=== PATIENT | female | born 1995 | race Caucasian/White ===

== ENCOUNTER 2022-09-09 16:11 | Inpatient (IN) | payer BC, SELFPAY ==
[2022-09-09] VITALS (22 sets, daily range): BP systolic 107–152; BP diastolic 69–108; PULSE 58–158; RESP 11–26; TEMP 36.6–36.8; O2SAT 96–100; BMI 22.6
--- NOTE | 2022-09-09 16:16 | ED_ITS ---
HPI - GI Bleed General: Chief complaint: GI Bleed Stated complaint: BLOOD IN VOMIT Time Seen by Provider: 09/09/22 16:16 History of Present Illness: Ms. Fonseca is a 27-year-old lady presenting to the emergency department due to hematemesis. She reports having a child with C- section and tubal ligation on August 07 in [place]. Over the past few days she has had diarrhea and recurrent episodes of vomiting. Emesis became bloody today. She describes it as bright red blood and EMS noted the blood in stool to be dark tarry. Initially patient noted to be tachycardic and hypo tensive. Intensity symptoms is moderate to severe. Describes aching sharp pain. Denies history of alcohol abuse or known liver disease. Patient is not on anticoagulation. No other specific changes in health, exacerbating, or alleviating factors identified. Onset (ago): day(s) Pain Consistency: constant Severity: severe Associated symptoms: Reports abdominal pain, malaise, nausea, vomiting and weakness Review of Systems General: Reports: 10 or more systems reviewed and unremarkable except in HPI and below Const: Reports: malaise GI: Reports: abdominal pain, nausea and vomiting [facility] PFSH: Medical History Gastric ulcer NSAID-induced duodenal ulcer Surgical History History of Family History Denies family history of Clotting disorder Bleeding disorder Physical Exam Const: COMMON NORMALS: alert GENERAL APPEARANCE: cooperative, well developed and ill appearing HENMT: COMMON NORMALS: normocephalic and atraumatic HEAD & SCALP: normocephalic and atraumatic Eye: COMMON NORMALS: conjunctivae normal CONJUNCTIVA: Yes conjunctivae normal SCLERA: sclerae normal Neck/C-Spine: COMMON NORMALS: supple GENERAL: Yes trachea midline Resp: COMMON NORMALS: clear to auscultation bilaterally EFFORT & INSPEC TION: Yes able to speak in complete sentences AUSCULTATION: clear to auscultation bilaterally Cardio: COMMON NORMALS: regular rate and regular rhythm RATE: regular rate RHYTHM: regular rhythm GI: COMMON NORMALS: Soft to palpation PALPATION: Yes Soft to palpation, Yes Tenderness to palpation present (GI), Yes Guarding due to palpation present (GI) and No Rigid due to palpation OTHER: incision appears well-healing Extremity: GENERAL: Yes normal exam except as noted and No edema Neuro: COMMON NORMALS: moves all extremities SENSORIUM/ORIENTATION: Yes alert and No Orientation impaired Psych: COMMON NORMALS: mental status grossly normal and Normal thought process present THOUGHT PROCESS: Normal thought process present Skin: NARRATIVE SKIN EXAM: pallor Course Vital Signs: Vital signs: Vital Signs Temperature 97.8 F 09/10/22 04:00 Pulse Rate 112 H 09/10/22 16:00 Respiratory Rate 18 09/10/22 16:00 Blood Pressure 128/76 09/10/22 16:00 Pulse Oximetry 100 09/10/22 16:00 Oxygen Delivery Me thod 09/10/22 04:00 MDM - GI Bleed Medical Decision Making 27-year-old lady presenting due to hematemesis. Exam as above without active hematemesis on exam. Ill and pale appearing, blood pressure is improved from EMS report Labs notable for no leukocytosis, microcytic anemia of hemoglobin 5.5, normal platelet count and coags. Metabolic panel with mild metabolic stress, mild transaminitis of uncertain significance. Obtain records from patient's visit at [facility] labs drawn on 08/19/2022 and hemoglobin at that time was 9.4 with low iron. Patient consented for blood transfusion and transfusion ordered. Additionally patient given analgesia, antiemetic, pantoprazole. CT with contrast demonstrates no acute chest pathology, there is extensive material likely blood in the stomach without active evidence of extravasation. I discussed this with general surgery on-call for GI. Given the patient has not had recurrence of hematemesis during ED stay it is reasonable to keep her at our facility. He recommended tranexamic acid which was ordered. The results of ED evaluation were discussed with the patient including plan for admission due to requirement for level of care not available if discharged to prevent significant worsening/deterioration. Patient agreeable with plan. Discussed with hospitalist service who was agreeable to admit patient. Medical Records I reviewed the patient's medical records. Lab Data I reviewed the patient's lab results. 09/10/22 14:15 09/10/22 02:41 Radiology Impressions Chest/Abdomen/Pelvis CT 09/09/22 17:38 IMPRESSION: 1. No CT evidence of acute intrathoracic pathology. 2. Additional findings, as above. IMPRESSION: 1. Lobular dependent soft tissue attenuation in the stomach, possibly ingested material or blood products. No definite active extravasation of contrast. 2. Additional findings, as above. Laboratory Results WBC 7.3 10^3/uL (4.0-10.0) 09/09/22 17:13 RBC 2.48 10^6/uL (4.1-5.3) L 09/09/22 17:13 Hgb 5.5 g/dL (11.5-15.3) L* 09/09/22 17:13 Hct 19.8 % (37.0-47.0) L* 09/09/22 17:13 MCV 79.8 fl (81-99) L 09/09/22 17:13 MCH 22.2 pg (28.0-34.0) L 09/09/22 17:13 MCHC 27.8 g/dL (30.0-36.0) L 09/09/22 17:13 RDW 22.5 % (12.1-15.1) H 09/09/22 17:13 Plt Count 249 10^3/cmm (130-400) 09/09/22 17:13 MPV 8.9 fL (7.4-10.4) 09/09/22 17:13 Neut % (Auto) 85.1 % 09/09/22 17:13 Lymph % (Auto) 11.1 % 09/09/22 17:13 Frederick % (Auto) 3.0 % 09/09/22 17:13 Eos % (Auto) 0.0 % 09/09/22 17:13 Baso % (Auto) 0.4 % 09/09/22 17:13 Neut # (Auto) 6.21 10^3/uL (1.8-7.7) 09/09/22 17:13 Lymph # (Auto) 0.8 10^3/uL (0.8-4.8) 09/09/22 17:13 Frederick # (Auto) 0.2 10^3/uL (0.2-0.9) 09/09/22 17:13 Eos # (Auto) 0.0 10^3/uL (0.0-0.8) 09/09/22 17:13 Baso # (Auto) 0.0 10^3/uL (0.0-0.1) 09/09/22 17:13 Nucleated RBC % (auto) 0 % 09/09/22 17:13 Nucleated RBCs # 0.0 /100WBC 09/09/22 17:13 Haptoglobin 83.0 mg/L (30-200) 09/09/22 17:15 PT 14.10 SECONDS (12.1-14.9) 09/09/22 17:13 INR 1.05 (0.8-1.2) 09/09/22 17:13 APTT 32.2 SECONDS (23.9-36.7) 09/09/22 17:13 Sodium 138 mmol/L (136-145) 09/09/22 17:13 Potassium 3.5 mmol/L (3.5-5.1) 09/09/22 17:13 Chloride 106 mmol/L (98-107) 09/09/22 17:13 Carbon Dioxide 18 mmol/L (22-29) L 09/09/22 17:13 Anion Gap 17.5 (5-19) 09/09/22 17:13 BUN 12 mg/dL (6-20) 09/09/22 17:13 Creatinine 0.6 mg/dL (0.5-0.9) 09/09/22 17:13 GFR Calculation 118.2 mL/min (90-130) 09/09/22 17:13 Glucose 86 mg/dL (65-115) 09/09/22 17:13 Calculated Osmolality 285 mOsm/kg (285-295) 09/09/22 17:13 Lactic Acid 0.7 mmol/L (0.5-2.2) 09/09/22 17:13 Calcium 8.1 mg/dL (8.5-10.5) L 09/09/22 17:13 Total Bilirubin 0.2 mg/dL (0.15-1.2) 09/09/22 17:13 AST 49 U/L (0-32) H 09/09/22 17:13 ALT 49 U/L (0-33) H 09/09/22 17:13 Alkaline Phosphatase 80 U/L (35-105) 09/09/22 17:13 Lactate Dehydrogenase 159 U/L (135-214) 09/09/22 17:15 Total Protein 5.5 g/dL (6.6-8.7) L 09/09/22 17:13 Albumin 3.2 g/dL (3.5-5.2) L 09/09/22 17:13 Globulin 2.3 g/dL (1.3-4.6) 09/09/22 17:13 Blood Type AB Positive 09/09/22 17:13 Rho(D) Type Positive 09/09/22 17:13 Antibody Screen Negative 09/09/22 17:13 Crossmatch See Detail 09/09/22 17:13 Critical Care Time Critical Care Time: Critical Care Time: Yes Total Critical Care Time: 35 Attestation: Due to a high probability of clinically significant, possibly life threatening deterioration, the patient required my highest level of attention and preparedness to intervene emergently and I personally spent this critical care time directly and personally managing the patient. This critical care time included obtaining a history; examining the patient; pulse oximetry; ordering and review of laboratory and imaging studies; arranging urgent treatment with development of a management plan; evaluation of patient's response to treatment; frequent reassessment; and, discussions with other providers as applicable. It was exclusive of separately billable procedures. Primary system involved is vascular Discharge Plan Discharge Patient Disposition: Admitted As Inpatient Admit Provider: Cristina Hernandez Clinical Impression: Acute upper gastrointestinal bleeding, Acute on chronic blood loss anemia Condition: Stable Coding Level of Care Code ED Waste [employer] Pumper for Chg Fwd Exam Comprehensive
[2022-09-09] MEDS: ondansetron 2 mg/ML SDV 2 mL 4 MG IVP ×2 (16:51→21:36)
[2022-09-09] MEDS: morphine 4 mg/mL SDV 1 mL IVP ×2 (16:51→19:06)
[2022-09-09] MEDS: sodium chloride 0.9% 1,000 ML 999 ML IV (16:51)
[2022-09-09 17:34] LABS: Basophils % 0.4 %; Lymphocytes # 0.8 10^3/uL (0.8-4.8); Lymphocytes % 11.1 %; Mean Corpuscular HGB Conc 27.8 g/dL (30.0-36.0); Mean Corpuscular Hemoglobin 22.2 pg (28.0-34.0); Mean Corpuscular Volume 79.8 fl (81-99); Mean Platelet Volume 8.9 fL (7.4-10.4); Monocytes # 0.2 10^3/uL (0.2-0.9); Neutrophils # 6.21 10^3/uL (1.8-7.7); Neutrophils % 85.1 %; Nucleated Red Blood Cells % 0 %; Platelet Count 249 10^3/cmm (130-400); Red Blood Count 2.48 10^6/uL (4.1-5.3); Red Cell Distribution Width 22.5 % (12.1-15.1); White Blood Count 7.3 10^3/uL (4.0-10.0)
[2022-09-09 17:37] LABS: Hematocrit 19.8 % (37.0-47.0); Hemoglobin 5.5 g/dL (11.5-15.3)
--- NOTE | 2022-09-09 17:38 | CTR_ITS ---
PROCEDURE INFORMATION: Exam: CT Chest With Contrast; Diagnostic Exam date and time: 09/09/2022 6:38 PM Age: 27 years old Clinical indication: Vomiting and other: Vomiting blood; Other: Vomiting blood today; Additional info: Gi bleed TECHNIQUE: Imaging protocol: Diagnostic computed tomography of the chest with contrast. Axial, coronal and sagittal reformatted images were created and reviewed. Radiation optimization: All CT scans at this facility use at least one of these dose optimization techniques: automated exposure control; mA and/or kV adjustment per patient size (includes targeted exams where dose is matched to clinical indication); or iterative reconstruction. Contrast material: OMNIPAQUE 350; Contrast volume: 95 ml; Contrast route: INTRAVENOUS (IV); Other protocol: This patient has received 0 known CTs and 0 known cardiac nuclear medicine studies in the 12 months prior to the current study. COMPARISON: No relevant prior studies available. RADIATION DOSE METRICS: Total DLP (mGy-cm): 560.83 FINDINGS: Lungs: Left upper lobe calcified granulomata. No consolidation. Pleural spaces: Unremarkable. No pneumothorax. No pleural effusion. Heart: Unremarkable. No cardiomegaly. No pericardial effusion. Lymph nodes: No pathologically enlarged lymph nodes. Vasculature: Unremarkable. No aortic aneurysm. Bones/joints: No acute osseous abnormality. Soft tissues: Unremarkable. PROCEDURE INFORMATION: Exam: CT Abdomen And Pelvis With Contrast Exam date and time: 09/09/2022 6:38 PM Age: 27 years old Clinical indication: Vomiting and other: Vomiting blood; Other: Vomiting blood today; Additional info: Gi bleed TECHNIQUE: Imaging protocol: Computed tomography of the abdomen and pelvis with contrast. Axial, coronal and sagittal reformatted images were created and reviewed. Radiation optimization: All CT scans at this facility use at least one of these dose optimization techniques: automated exposure control; mA and/or kV adjustment per patient size (includes targeted exams where dose is matched to clinical indication); or iterative reconstruction. Contrast material: OMNIPAQUE 350; Contrast volume: 95 ml; Contrast route: INTRAVENOUS (IV); Other protocol: This patient has received 0 known CTs and 0 known cardiac nuclear medicine studies in the 12 months prior to the current study. COMPARISON: No relevant prior studies available. RADIATION DOSE METRICS: Total DLP (mGy-cm): 560.83 FINDINGS: Liver: Unremarkable. Gallbladder and bile ducts: Mild gallbladder distention without radiodense gallstones. Pancreas: Unremarkable. Spleen: Unremarkable. Adrenal glands: Normal. No mass. Kidneys and ureters: No mass. No radiodense calculi. No hydronephrosis. Stomach and bowel: Lobular dependent soft tissue attenuation in the stomach, possibly ingested material or blood products. No definite bowel wall thickening. No obstruction. No pneumatosis. Appendix: Normal. Intraperitoneal space: No free fluid. No organized fluid collection. No free air. Vasculature: Unremarkable. No aneurysm. Lymph nodes: No pathologically enlarged lymph nodes. Urinary bladder: Unremarkable as visualized. Reproductive: Probable right ovarian follicles. uterus. Bones/joints: No acute osseous abnormality. Soft tissues: Postoperative changes in the subcutaneous tissues of the anterior pelvic wall. CT/CT chest abd pel w con* IMPRESSION: 1. No CT evidence of acute intrathoracic pathology. 2. Additional findings, as above. IMPRESSION: 1. Lobular dependent soft tissue attenuation in the stomach, possibly ingested material or blood products. No definite active extravasation of contrast. 2. Additional findings, as above.
[2022-09-09 17:50] LABS: INR 1.05 (0.8-1.2)
[2022-09-09 17:51] LABS: Partial Thromboplastin Time 32.2 SECONDS (23.9-36.7)
[2022-09-09 17:55] LABS: Alanine Aminotransferase 49 U/L (0-33); Albumin Level 3.2 g/dL (3.5-5.2); Alkaline Phosphatase 80 U/L (35-105); Anion Gap 17.5 (5-19); Aspartate Amino Transferase 49 U/L (0-32); Blood Urea Nitrogen 12 mg/dL (6-20); Calcium 8.1 mg/dL (8.5-10.5); Carbon Dioxide 18 mmol/L (22-29); Chloride 106 mmol/L (98-107); Globulin 2.3 g/dL (1.3-4.6); Glomerular Filtration Rate 118.2 mL/min (90-130); Glucose 86 mg/dL (65-115); Osmolality Calculated 285 mOsm/kg (285-295); Potassium 3.5 mmol/L (3.5-5.1); Sodium 138 mmol/L (136-145); Total Bilirubin 0.2 mg/dL (0.15-1.2); Total Protein 5.5 g/dL (6.6-8.7)
[2022-09-09 17:58] LABS: Lactic Sepsis W/Reflex 0.7 mmol/L (0.5-2.2)
[2022-09-09] MEDS: pantoprazole 40 mg SDV 80 MG IVP (18:53)
--- NOTE | 2022-09-09 21:52 | PM.HP ---
Providers/Chief Complaint Admitting Physician: Cristina Hernandez MD Primary Care Provider: Joanne Miranda APRN Chief Complaint: BLOOD IN VOMIT History of Present Illness Flor Fonseca is a 27 year old female who is 1 month after having delivered a baby on August 07, 2022 via at [place]. She presented to the emergency room today with chief complaints of hematemesis. Patient states that she has been nauseous and vomiting several times a day through her and period. Today during one of her vomiting episodes she had bright red blood come up with her vomitus and presented to the emergency room. Here she was noted to be tachycardic, hemoglobin returned at 5.5. She does not know her hemoglobin at the time of delivery. Reports that she did not have any known bleeding complications, did not require any blood transfusion. After having the episode of hematemesis she also had 1 episode of melena with dark black tarry stools. Denies any past history of GI bleeding. Denies any history of known clotting disorders. This was her third and overall uneventful except for hyperemesis. She did not have any known issues with helpp syndrome, eclampsia, cholestasis etc. She has had 2 other episodes of vomiting since being admitted to the ICU with altered blood. She is running her first unit of blood transfusion right now. Since her she has been taking ibuprofen, however reports she only takes 1 tablet every other day. Mostly has been relying on Tylenol for pain control. No history of recent binge alcohol drinking but has consumed alcohol intermittently over the past month. Most recent consumption was 3 days ago. She is not currently breast-feeding. She continues to have vaginal bleeding since her , she thinks this is also increased over the past week or so similar to her period. No bleeding at any other site currently. No history of She does repor recreational drug use.t abdominal pain today located in the epigastric region radiating into her back. CT of the chest abdomen and pelvis was performed today which showed possible blood products in the stomach. No liver or gallbladder abnormalities. No evidence of pancreatitis. Review of Systems General: Reports: 10 or more systems reviewed and unremarkable except in HPI and below Const: Denies: fever(s), chills or body aches Eyes: Denies: change in vision, blurry vision or photophobia ENMT: Reports: hoarseness; Denies: throat pain, enlarged tonsils, odynophagia or nasal congestion Card: Denies: chest pain, palpitations, irregular heart rhythm, edema, swelling of feet/ankles, lightheadedness, pre-syncope, dyspnea on exertion or orthopnea Resp: Denies: dyspnea, productive cough, non-productive cough, wheezing, stridor, pain on inspiration, change in phlegm color, hemoptysis or chest congestion GI: Denies: abdominal pain, nausea, vomiting, hematemesis, coffee ground emesis, dysphagia, heartburn, diarrhea, constipation, GI cramping, change in stool character, hematochezia or melena : Denies: flank pain, difficulty voiding, dysuria, urinary frequency, urinary urgency, urinary hesitancy or hematuria Musc: Denies: neck pain, back pain, extremity pain, joint swelling, joint warmth or deformity Neuro: Denies: headache(s), numbness in extremities, weakness in extremities, sensory changes, difficulty walking, frequent falls, dizziness, vertigo, behavioral changes, Slurred speech present or seizure-like activity Psych: Denies: anxiety, depression, suicidal ideation or homicidal ideation Endo: Denies: polyuria, polydipsia, tired all the time, cold intolerance or hot flashes Sundeep/Lymph: Denies: easy bruising or easy bleeding Medications/Allergies Home Medications Medication Instructions Recorded Confirmed Last Taken Type baclofen 10 mg tablet 10 mg PO BID PRN Pain 09/09/22 09/09/22 09/09/22 07:00 History buspirone 15 mg tablet 15 mg PO BID 09/09/22 09/09/22 Unknown History gabapentin 100 mg capsule 100 mg PO 09/09/22 Unknown History hydroxyzine pamoate 25 mg capsule 25 mg PO Q6H PRN Anxiety 09/09/22 09/09/22 Unknown History ibuprofen 800 mg tablet 800 mg PO Q6H PRN Pain 09/09/22 09/09/22 09/09/22 12:00 History Allergies Allergy/AdvReac Type Severity Reaction Status Date / Time No Known Allergies Allergy Verified 09/09/22 16:48 PFSH Acute PFSH: Surgical History History of Family History Denies family history of Clotting disorder Bleeding disorder Vitals/I&O/Wt Last Vital Signs Temp 98.2 F 09/09/22 19:27 Pulse 91 09/09/22 19:42 Resp 14 09/09/22 19:42 BP 118/79 09/09/22 19:42 Pulse Ox 100 09/09/22 19:42 O2 Del Method 09/09/22 19:02 09/09/22 09/09/22 09/09/22 06:59 14:59 22:59 Intake Total 110 / 110 Balance 110 / 110 Weight last 48 hrs Weight 54.431 kg Physical Exam Narrative: General: Appears anxious, pale. tachycardic HEENT: PERRLA, pupils bilaterally equal and reactive, pallor + Chest: Normal vesicular breath sounds, no added sounds, equal good air entry bilaterally CVS: S1-S2 regular, no murmurs, no tachycardia, no gallops, no rubs Abdomen: Soft, nontender, no organomegaly, bowel sounds present Neuro: No focal deficits, no facial deformity, AO x3, power 5/5 in all limbs Data 09/09/22 17:13 09/09/22 17:13 Micro: Microbiology 09/09/22 17:18 Blood Culture - Preliminary Blood SPECIMEN COLLECTED 09/09/22 17:13 Blood Culture - Preliminary Blood SPECIMEN COLLECTED A&P Assessment and plan (1) Acute upper gastrointestinal bleeding: Acute upper GI bleeding manifested as hematemesis and melena. CT of the chest abdomen and pelvis with blood products in the stomach. Patient denies any past history of GI bleeding. Suspect that her current episode of bleeding may be related to gastric versus duodenal ulcer since she has been taking NSAIDs since her . Also possible that she may have esophageal tears from persistent vomiting over the past month. Currently her blood pressure is well controlled, she has mildly elevated LFTs in the 40s range, normal platelet at 249K, no history of eclampsia or preeclampsia during , HELLP syndrome appears to be less likely. Will check LDH and haptoglobin for any evidence of hemolysis Thus has received Protonix 80 mg IV push. We will start Protonix 8 mg per hr IV infusion. As needed Zofran Reglan scopolamine patch to help with nausea. N.p.o. as anticipate upper GI endoscopy. Surgery has been consulted from the ER. (2) Anemia due to blood loss: Hb at 5.5, ordered for 2 units of PRBC Will trend H&H every 6 hrs Sinus tachycardia, HR 120s , likely 2/2 acute blood loss, BP is currently maintained (3) History of : Recent no complications except for excessive vomiting. CT abdomen pelvis shows uterus, no retained products. Not currently breast feeding, okay to use opiates for pain management Attestations Medical Necessity Statement*: > 2midnight admission will be needed for UGI bleed, blood transfusion, likely endoscopy Coding Level of Care Code Acute Code for Chg Fwd Diagnoses Acute upper gastrointestinal bleeding K92.2 Anemia due to blood loss D50.0 History of Z98.891
[2022-09-09] MEDS: metoclopramide 5 mg/mL SDV 2 mL 10 MG IVP (22:45)
[2022-09-09] MEDS: acetaminophen 1,000 MG/100 ML PIGGYBACK 400 MG IV (22:52)
[2022-09-09] MEDS: scopolamine 1.5 Patch 1 PATCH TRANSDERMA (22:54)
[2022-09-09] MEDS: sodium chloride 0.9% (100 ml) 100 ML 999 ML (23:01)
[2022-09-09] MEDS: pantoprazole 40 MG in sodium chloride 0.9% (plus) 100 ML 20 MG IV (23:02)
[2022-09-09 23:16] LABS: HCG Qualitative Urine. Negative (Negative)
[2022-09-10] VITALS (30 sets, daily range): BP systolic 113–149; BP diastolic 71–97; PULSE 69–174; RESP 9–29; TEMP 36.5–36.8; O2SAT 90–100
[2022-09-10 00:19] LABS: Add Urine Microscopic? YES; Bilirubin Urine Neg (Negative); Blood Urine 3+ (Negative); Glucose Urine UA Norm (Normal); Ketones Urine 3+ (Negative); Leukocyte Esterase Urine Negative (Negative); Nitrate Urine Negative (Negative); Protein Urine Trace (Negative); Squamous Epithelial Cell Urine 0-4 /hpf (0-5); Urine Appearance Clear (CLEAR); Urine Color Yellow (Yellow); Urobilinogen Urine Norm (Negative); WBC Urine 0-4 /hpf (0-5); pH Urine 5 (5-7)
[2022-09-10 00:20] LABS: Add Urine Culture? No; Transitional Epi Cells Urine RARE /hpf
[2022-09-10 00:40] LABS: Lactate Dehydrogenase 159 U/L (135-214)
[2022-09-10] MEDS: morphine 4 mg/mL SDV 1 mL 2 MG IVP (00:49)
[2022-09-10 03:10] LABS: Basophils % 0.5 %; Eosinophils % 0.1 %; Lymphocytes % 24.9 %; Mean Corpuscular HGB Conc 30.2 g/dL (30.0-36.0); Mean Corpuscular Hemoglobin 24.9 pg (28.0-34.0); Mean Corpuscular Volume 82.5 fl (81-99); Mean Platelet Volume 9.1 fL (7.4-10.4); Monocytes # 0.4 10^3/uL (0.2-0.9); Monocytes % 4.8 %; Neutrophils # 5.49 10^3/uL (1.8-7.7); Neutrophils % 69.3 %; Nucleated Red Blood Cells % 0.4 %; Platelet Count 201 10^3/cmm (130-400); Red Blood Count 3.65 10^6/uL (4.1-5.3); Red Cell Distribution Width 19.9 % (12.1-15.1); White Blood Count 7.9 10^3/uL (4.0-10.0)
[2022-09-10 03:18] LABS: Hematocrit 30.1 % (37.0-47.0); Hemoglobin 9.1 g/dL (11.5-15.3)
[2022-09-10 03:36] LABS: Alanine Aminotransferase 47 U/L (0-33); Albumin Level 3.3 g/dL (3.5-5.2); Alkaline Phosphatase 77 U/L (35-105); Anion Gap 19.6 (5-19); Aspartate Amino Transferase 42 U/L (0-32); Blood Urea Nitrogen 11 mg/dL (6-20); Calcium 8.1 mg/dL (8.5-10.5); Carbon Dioxide 16 mmol/L (22-29); Chloride 105 mmol/L (98-107); Globulin 2.5 g/dL (1.3-4.6); Glomerular Filtration Rate 145.9 mL/min (90-130); Glucose 59 mg/dL (65-115); Osmolality Calculated 281 mOsm/kg (285-295); Potassium 3.6 mmol/L (3.5-5.1); Sodium 137 mmol/L (136-145); Total Protein 5.8 g/dL (6.6-8.7)
[2022-09-10] MEDS: pantoprazole 40 MG in sodium chloride 0.9% (plus) 100 ML 20 MG IV (04:07)
[2022-09-10] MEDS: HYDROmorphone 1 mg/mL INJ 1 mL IVP ×3 (05:22→14:12)
[2022-09-10] MEDS: dextrose 5%-sod chloride 0.9% 1,000 ML 75 ML IV (07:32)
--- NOTE | 2022-09-10 07:36 | PC.PHAR ---
pt states she takes care of her own medications-pt states she has been out of her gabapentin 100mg for about a week ext med history shows last filled 08/25/22 30d/s-pt states she takes buspar 15mg bid prn ext shows last filled 03/27/22 30d/s and hydroxyzine paresh 25mg hs prn ext shows last filled 04/03/22 1d/s for 25mg po q6h prn ax-pt states she hasnt been taking her vits for maybe longer than 3 weeks ext shows last filled 08/11/22 30d/s-pt states she finished all her cipro filled 08/19/22 7d/s and norco 5-325mg q6h prn pain filled on 08/19/22 7d/s-brandy to use med to beds when she gets discharged-pt states she would lnotes are made in the pharmacy comments
--- NOTE | 2022-09-10 07:40 | P.CONIM_ITS ---
Providers/Reason For Consult Consulting Physician/Specialty*: Dr. Brodie Hayes, DO/General surgery Reason for Consult*: Hematemesis Attending Physician: Cristina Hernandez MD Primary Care Provider: Joanne Miranda APRN History of Present Illness History of Present Illness Flor Fonseca is a 27 year old female who is 1 month from section who presented to the ER with sudden onset hematemesis and melena. She reports that for the last couple of months she has been having daily nausea and vomiting. She reports that she has some sharp right lower quadrant abdominal pain that radiates through to her back. Nothing seems to make the pain better or worse. She denies any heartburn. She is not currently breast-feeding. She does take ibuprofen for her abdominal pain every other day or so. Denies any family history of stomach or colon cancer. Review of Systems General: Reports: 10 or more systems reviewed and unremarkable except in HPI and below Medications/Allergies Home Medications Medication Instructions Recorded Confirmed Last Taken Type baclofen 10 mg tablet 10 mg PO BID PRN Pain 09/09/22 09/10/22 Unknown History buspirone 15 mg tablet 15 mg PO BID PRN Anxiety 09/09/22 09/10/22 Unknown History gabapentin 100 mg capsule 100 mg PO BID 09/09/22 09/10/22 1 Week Ago History ~09/03/22 rx filled 08/25/22 30d hydroxyzine pamoate 25 mg capsule 25 mg PO BEDTIME PRN Anxiety 09/09/22 09/10/22 Unknown History ibuprofen 800 mg tablet 800 mg PO Q6H PRN Pain 09/09/22 09/10/22 Unknown History acetaminophen 500 mg tablet 1,000 - 1,500 mg PO Q6H PRN Pain 09/10/22 09/10/22 Unknown History ondansetron 8 mg disintegrating 8 mg PO Q4H PRN Nausea And Vomiting 09/10/22 09/10/22 Unknown History tablet Allergies Allergy/AdvReac Type Severity Reaction Status Date / Time No Known Allergies Allergy Verified 09/10/22 07:34 Current Medications Generic Name Dose Route Start Last Admin Trade Name Freq PRN Reason Stop Dose Admin Hydromorphone HCl 1 mg 09/10/22 05:07 09/10/22 05:22 Hydromorphone 1 Mg/Ml Inj 1 Ml IVP 1 mg Q6H PRN Administration pain Pantoprazole Sodium 40 mg/ 100 mls @ 20 mls/hr 09/09/22 22:00 09/10/22 04:07 Sodium Chloride IV 8 mg/hr .Q5H LEYDI 20 mls/hr Administration 8 MG/HR Dextrose/Sodium Chloride 1,000 mls @ 75 mls/hr 09/10/22 06:45 09/10/22 07:32 Dextrose 5%-Sod Chloride 0.9% IV 75 mls/hr .[id number] LEYDI Administration Metoclopramide HCl 10 mg 09/09/22 22:30 09/09/22 22:45 Metoclopramide 5 Mg/Ml Sdv 2 Ml IVP 10 mg Q6H PRN Administration NAUSEA AND VOMITING Ondansetron HCl 4 mg 09/09/22 21:23 09/09/22 21:36 Ondansetron 2 Mg/Ml Sdv 2 Ml IVP 4 mg Q8H PRN Administration NAUSEA AND VOMITING Scopolamine 1 patch 09/09/22 22:45 09/09/22 22:54 Scopolamine 1.5 Patch TRANSDERMA 1 patch Q3D LEYDI Administration PFSH Acute PFSH: Surgical History History of Family History Denies family history of Clotting disorder Bleeding disorder Vitals/I&O/Wt Last Vital Signs Temp 97.8 F 09/10/22 04:00 Pulse 72 09/10/22 06:00 Resp 14 09/10/22 06:00 BP 118/83 09/10/22 06:00 Pulse Ox 100 09/10/22 06:00 O2 Del Method 09/10/22 04:00 09/09/22 09/10/22 09/10/22 22:59 06:59 14:59 Intake Total 470 / 470 590 / 1060 Output Total 700 / 700 Balance 470 / 470 -110 / 360 Weight last 48 hrs Weight 130 lb 4.8 oz Weight 120 lb Physical Exam Narrative: General : Patient is well developed , no acute distress, oriented x3 Head : Normal cephalic, a-traumatic. Ears : Pinnae and external canal are normal. Hearing is normal. Eyes : PERRLA, Sclera and injection are normal. No conjunctival discharge. Nose : Mucous membranes are without erythema. Throat : buccal mucosa is normal, gums are without significant recession or hypertrophy. Lungs : Equal chest rise bilaterally, no use of accessory muscles, trachea is midline. Cor : Rate and rhythm are normal. Abdomen : Soft, ND, NT, no g/r/m Extremities : No edema, no cyanosis or clubbing, dorsalis pedis pulses are present bilaterally, non-tender to palpation of calves. Upper extremities are normal bilaterally. Back : non-tender to palpation, no CVA tenderness. Neuro : CN II - XII intact, Upper and lower extremities have equal and full strength Data 09/10/22 02:41 09/10/22 02:41 Micro: Microbiology 09/09/22 17:18 Blood Culture - Preliminary Blood SPECIMEN COLLECTED 09/09/22 17:13 Blood Culture - Preliminary Blood SPECIMEN COLLECTED A&P Assessment and plan (1) Anemia due to blood loss: (2) Acute upper gastrointestinal bleeding: Plan EGD The risks and benefits of the procedure, including bleeding, infection, intesti nal perforation requiring surgery, missed lesion were explained to the patient. The patient is understanding of the risks and wishes to proceed. Coding Level of Care Code Acute Code for Chg Fwd Diagnoses Anemia due to blood loss D50.0 Acute upper gastrointestinal bleeding K92.2
--- NOTE | 2022-09-10 07:48 | PC.NURSE ---
Patient off Unit Patient transferred to GI lab on continuos monitoring. Alert/oriented x4 on room air at time of transfer.
[2022-09-10 07:59] LABS: Glucose Point of Care 221 mg/dL (70-110)
--- NOTE | 2022-09-10 08:02 | P.ANESASSM_ITS ---
Pre-Anesthetic Assessment Height/Weight: Height 1.55 m Weight 59.103 kg Temp Pulse Resp BP Pulse Ox O2 Del Method 97.8 F 72 14 118/83 100 09/10/22 04:00 09/10/22 06:00 09/10/22 06:00 09/10/22 06:00 09/10/22 06:00 09/10/22 04:00 Operation Date: 09/10/22 07:30 Proposed Procedures p EGD(Not Applicable) - Brodie Hayes DO Familial anesthetic complications: None Was Beta Neha taken within 24 hours: N/A Was Clonidine taken within 24 hours: N/A Last intake: > 8hrs Social No alcohol and No tobacco Exam alert, oriented x 3, clear to auscultation bilaterally and regular rate & rhythm Airway Mallampati: Class I Dentition: full GI No longer vomiting, not nauseated Anesthetic Plan ASA status: 2 Anesthesia: MAC Risk of > 500 ml blood loss (7ml/kg in children): No Medications/Allergies Home Medications Medication Instructions Recorded Confirmed Last Taken Type baclofen 10 mg tablet 10 mg PO BID PRN Pain 09/09/22 09/10/22 Unknown History buspirone 15 mg tablet 15 mg PO BID PRN Anxiety 09/09/22 09/10/22 Unknown History gabapentin 100 mg capsule 100 mg PO BID 09/09/22 09/10/22 1 Week Ago History ~09/03/22 rx filled 08/25/22 30d hydroxyzine pamoate 25 mg capsule 25 mg PO BEDTIME PRN Anxiety 09/09/22 09/10/22 Unknown History ibuprofen 800 mg tablet 800 mg PO Q6H PRN Pain 09/09/22 09/10/22 Unknown History acetaminophen 500 mg tablet 1,000 - 1,500 mg PO Q6H PRN Pain 09/10/22 09/10/22 Unknown History ondansetron 8 mg disintegrating 8 mg PO Q4H PRN Nausea And Vomiting 09/10/22 09/10/22 Unknown History tablet Allergies Allergy/AdvReac Type Severity Reaction Status Date / Time No Known Allergies Allergy Verified 09/10/22 07:34 Current Medications Generic Name Dose Route Start Last Admin Trade Name Freq PRN Reason Stop Dose Admin Hydromorphone HCl 1 mg 09/10/22 05:07 09/10/22 05:22 Hydromorphone 1 Mg/Ml Inj 1 Ml IVP 1 mg Q6H PRN Administration pain Pantoprazole Sodium 40 mg/ 100 mls @ 20 mls/hr 09/09/22 22:00 09/10/22 07:45 Sodium Chloride IV 0 mg/hr .Q5H LEYDI 0 mls/hr Infusion 8 MG/HR Dextrose/Sodium Chloride 1,000 mls @ 75 mls/hr 09/10/22 06:45 09/10/22 07:45 Dextrose 5%-Sod Chloride 0.9% IV 0 mls/hr .[id number] LEYDI Infusion Metoclopramide HCl 10 mg 09/09/22 22:30 09/09/22 22:45 Metoclopramide 5 Mg/Ml Sdv 2 Ml IVP 10 mg Q6H PRN Administration NAUSEA AND VOMITING Ondansetron HCl 4 mg 09/09/22 21:23 09/09/22 21:36 Ondansetron 2 Mg/Ml Sdv 2 Ml IVP 4 mg Q8H PRN Administration NAUSEA AND VOMITING Scopolamine 1 patch 09/09/22 22:45 09/09/22 22:54 Scopolamine 1.5 Patch TRANSDERMA 1 patch Q3D LEYDI Administration PFSH Anesthesia Surgical History History of Family History Denies family history of Clotting disorder Bleeding disorder Data Anesthesia 09/10/22 02:41 09/10/22 02:41 Short CBC 09/09/22 09/09/22 09/10/22 Range/Units 17:13 22:42 02:41 WBC 7.3 7.9 (4.0-10.0) 10^3/uL Hgb 5.5 L* Cancelled 9.1 L D (11.5-15.3) g/dL Hct 19.8 L* Cancelled 30.1 L D (37.0-47.0) % MCV 79.8 L 82.5 (81-99) fl Plt Count 249 201 (130-400) 10^3/cmm Neut % (Auto) 85.1 69.3 % Neut # (Auto) 6.21 5.49 (1.8-7.7) 10^3/uL BMP 09/09/22 09/10/22 17:13 02:41 Sodium 138 137 Potassium 3.5 3.6 Chloride 106 105 Carbon Dioxide 18 L 16 L BUN 12 11 Creatinine 0.6 0.5 Glucose 86 59 L Calcium 8.1 L 8.1 L Liver Function 09/09/22 09/10/22 Range/Units 17:13 02:41 Total Bilirubin 0.2 1.0 (0.15-1.2) mg/dL AST 49 H 42 H (0-32) U/L ALT 49 H 47 H (0-33) U/L Alkaline Phosphatase 80 77 (35-105) U/L Albumin 3.2 L 3.3 L (3.5-5.2) g/dL Urine 09/09/22 Range/Units 22:06 Urine Color Yellow (Yellow) Urine Appearance Clear (CLEAR) Urine pH 5 (5-7) Ur Specific [place] 1.010 (1.005-1.030) Urine Protein Trace (Negative) Urine Glucose (UA) Norm (Normal) Urine Ketones 3+ H (Negative) Urine Nitrate Negative (Negative) Urine Bilirubin Neg (Negative) Ur Leukocyte Esterase Negative (Negative) Urine RBC 5-10 H (0-2) /hpf Urine WBC 0-4 H (0-5) /hpf Blood Bank 09/09/22 17:13 Rho(D) Type Positive Antibody Screen Negative Coags 09/09/22 17:13 PT 14.10 INR 1.05 APTT 32.2 Microbiology 09/09/22 17:18 Blood Culture - Preliminary Blood SPECIMEN COLLECTED 09/09/22 17:13 Blood Culture - Preliminary Blood SPECIMEN COLLECTED Cardiac Studies: No Data to Display
[2022-09-10 10:10] LABS: Hematocrit 28.5 % (37.0-47.0); Hemoglobin 8.8 g/dL (11.5-15.3)
--- NOTE | 2022-09-10 10:31 | PM.PN ---
Subjective Subjective: Significant duodenal ulcer, gastric ulcer Hemoglobin 8.8 this morning Recheck H&H at 4:00 No active hematemesis Blood pressure is stable Patient is not endorsing active pain Vitals/I&O/Wt Last Vital Signs Temp 97.8 F 09/10/22 04:00 Pulse 72 09/10/22 06:00 Resp 14 09/10/22 06:00 BP 118/83 09/10/22 06:00 Pulse Ox 100 09/10/22 06:00 O2 Del Method 09/10/22 04:00 09/09/22 09/10/22 09/10/22 22:59 06:59 14:59 Intake Total 470 / 470 590 / 1060 1138.917 / 1138.917 Output Total 700 / 700 Balance 470 / 470 -110 / 360 1138.917 / 1138.917 Weight last 48 hrs Weight 59.103 kg Weight 54.431 kg Physical Exam Narrative: Patient laying supine No active discomfort Abdomen is soft nontender Hemodynamically stable She is doing well on room air scar showing good signs healing with granulation tissue Nonfocal neuro exam No audible stridor or wheezing Data 09/10/22 10:00 09/10/22 02:41 Micro: Microbiology 09/09/22 17:18 Blood Culture - Preliminary Blood SPECIMEN COLLECTED 09/09/22 17:13 Blood Culture - Preliminary Blood SPECIMEN COLLECTED A&P Assessment and plan (1) Anemia due to blood loss: (2) Acute upper gastrointestinal bleeding: (3) History of : (4) Duodenal ulcer: (5) Gastric ulcer: (6) NSAID-induced duodenal ulcer: Plan Acute GI blood loss anemia Significant gastric and duodenal ulcer NSAID induced Check/rule out H. pylori Continue sucralfate and Protonix for now IV fluids Initiate clear liquid diet Recheck H&H at 4 PM Patient hemodynamically stable With alcoholism or variceal bleed Patient explained the risk of intestinal perforation with such big duodenal ulcer DVT prophylaxis contraindicated Liquid diet Change Protonix to 40 mg twice daily IV push Attestations Medical Necessity Statement*: Monitor in ICU for now every 6 hours H&H Time Spent in Patient Care: 35 Coding Level of Care Code Acute Code for Chg Fwd Diagnoses Anemia due to blood loss D50.0 Acute upper gastrointestinal bleeding K92.2 History of Z98.891 Duodenal ulcer K26.9 Gastric ulcer K25.9 NSAID-induced duodenal ulcer K26.9; T39.627A
[2022-09-10] MEDS: pantoprazole 40 mg SDV IVP (10:55)
[2022-09-10] MEDS: sucralfate 1 gm/10 mL Oral Liq UDC PO (10:56)
[2022-09-10] MEDS: sodium chloride 0.9% 1,000 ML 30 ML IV (10:56)
[2022-09-10] MEDS: metoclopramide 5 mg/mL SDV 2 mL 10 MG IVP (13:18)
--- NOTE | 2022-09-10 14:07 | ANE.PACU2 ---
Inpatient post-anesthesia follow up: Airway intact: Yes Vital signs: Temperature 97.8 F Pulse Rate 78 Respiratory Rate 10 Blood Pressure 128/76 Pulse Oximetry 100 Oxygen Delivery Me thod Room Air Oxygen Flow Rate Fraction of Inspir ed Oxygen Hydration adequate: Yes Nausea and vomiting: No Pain level: 1 Mental status: Baseline
[2022-09-10] MEDS: ondansetron 2 mg/ML SDV 2 mL 4 MG IVP (14:12)
[2022-09-10 14:22] LABS: Hematocrit 24.9 % (37.0-47.0); Hemoglobin 7.8 g/dL (11.5-15.3)
[2022-09-10 14:49] LABS: Iron 295 ug/dL (37-145); Percent Saturation 93.6 % (20-50); Total Iron Binding Capacity 315 mcg/dl; Unsaturated Iron Binding 20 ug/dL (112-347)
[2022-09-10] MEDS: sodium chloride 0.9% 1,000 ML 999 ML IV (15:01)
[2022-09-10 15:05] LABS: Vitamin B12 765 pg/mL (232-1245)
--- NOTE | 2022-09-10 15:43 | PM.TDS ---
Transfer Summary Providers Date of Admission: 09/09/22 21:46 Date of Discharge/Transfer: 09/10/22 Attending Provider at Admission: Cristina Hernandez MD Attending Provider at Transfer: Tomi Willson MD Primary Care Provider: Joanne Miranda APRN Transfer Plans: Anticipated date of transfer: 09/10/22. Diagnoses at Discharge Discharge Diagnosis (1) Anemia due to blood loss: Status: Acute (2) Acute upper gastrointestinal bleeding: Status: Acute (3) History of : Status: Acute (4) Duodenal ulcer: Status: Acute (5) Gastric ulcer: Status: Acute (6) NSAID-induced duodenal ulcer: Status: Acute Reason for Visit Reason for Visit BLOOD IN VOMIT Brief History: Flor Fonseca is a 27 year old female who is 1 month after having delivered a baby on August 07, 2022 via at [facility].? She presented to the emergency room today with chief complaints of hematemesis.? Patient states that she has been nauseous and vomiting several times a day through her and period.? Today during one of her vomiting episodes she had bright red blood come up with her vomitus and presented to the emergency room.? Here she was noted to be tachycardic, hemoglobin returned at 5.5.? She does not know her hemoglobin at the time of delivery.? Reports that she did not have any known bleeding complications, did not require any blood transfusion.? After having the episode of hematemesis she also had 1 episode of melena with dark black tarry stools.? Denies any past history of GI bleeding.? Denies any history of known clotting disorders.? This was her third and overall uneventful except for hyperemesis.? She did not have any known issues with helpp syndrome, eclampsia, cholestasis etc.? She has had 2 other episodes of vomiting since being admitted to the ICU with altered blood.? She is running her first unit of blood transfusion right now. Since her she has been taking ibuprofen, however reports she only takes 1 tablet every other day.? Mostly has been relying on Tylenol for pain control.? No history of recent binge alcohol drinking but has consumed alcohol intermittently over the past month.? Most recent consumption was 3 days ago.? She is not currently breast-feeding.? She continues to have vaginal bleeding since her , she thinks this is also increased over the past week or so similar to her period.? No bleeding at any other site currently.? No history of She does repor recreational drug use.t abdominal pain today located in the epigastric region radiating into her back. CT of the chest abdomen and pelvis was performed today which showed possible blood products in the stomach.? No liver or gallbladder abnormalities.? No evidence of pancreatitis. Hospital Course Hospital Course Patient was admitted to the ICU for management of active hematemesis, EGD was done which showed gastritis, gastric ulcer, cratered duodenal ulcer, after EGD patient was put on clear liquid diet, she started having hematemesis again, she was throwing fresh clots, became tachycardic heart rate went up to 190s massive blood transfusion protocol started 2 unit PRBC requested along 2 unit of platelets, 1 g of Tranxene Aric acid. Heart rate came down to 140s, she is awake but lethargic, able to protect her airways. Dr. Garcia interventional radiologist accepted her at [facility] for embolization for active bleeding duodenal ulcer. Patient will be sent back to our facility once she has been stabilized at [facility]. Hemoglobin at the time of after blood transfusion it went up to 9, after massive hematemesis in the ICU today it has dropped down to 7.8 Hemoglobin at the time of admission 5.5 I have tried to call [facility], they do not have any beds, it is at best interest for the patient to go to nearest hospital where IR is available to do embolization, Dr. Garcia IR has accepted her Physical Exam Narrative: Lethargic and fatigued Able to protect airway Minus tachycardia Looks pale Mild abdominal pain S1, S2 sinus tachycardia Currently on room air Nonfocal neuro exam TS Data Studies Completed and Pending Pending at discharge Category Date Time Status ABO/Rh Type Routine Lab 09/09/22 17:15 Results BMP [Basic Metabolic Panel] AM LABS Lab 09/11/22 04:00 Ordered Blood Culture Stat Lab 09/09/22 17:18 Results CBC Auto Diff [Complete Blood Count w/Auto] AM LABS Lab 09/11/22 04:00 Ordered Complete Crossmatch Routine Lab 09/09/22 17:15 Results Hemoglobin and Hematocrit Q6H Lab 09/10/22 16:35 Ordered Hemoglobin and Hematocrit Q6H Lab 09/10/22 22:35 Ordered Leukocyte Reduced RBC Routine Lab 09/09/22 17:13 Results Platelets Leuko-Reduced Routine Lab 09/10/22 14:17 Results Retype for Patiets ABO/Rh Routine Lab 09/09/22 17:15 Results Type and Screen Stat Lab 09/09/22 17:13 Results Pathology: Surgical [PTH] Routine Pth 09/10/22 08:29 Received Labs from last 24 hours 09/10/22 09/10/22 09/10/22 14:15 10:00 07:56 WBC RBC Hgb 7.8 L 8.8 L Hct 24.9 L 28.5 L MCV MCH MCHC RDW Plt Count MPV Neut % (Auto) Lymph % (Auto) [place] % (Auto) Eos % (Auto) Baso % (Auto) Neut # (Auto) Lymph # (Auto) [place] # (Auto) Eos # (Auto) Baso # (Auto) Nucleated RBC % (auto) Nucleated RBCs # Haptoglobin PT INR APTT Sodium Potassium Chloride Carbon Dioxide Anion Gap BUN Creatinine GFR Calculation Glucose POC Glucose 221 H Calculated Osmolality Lactic Acid Calcium Iron TIBC % Saturation Unsat Iron Binding Total Bilirubin AST ALT Alkaline Phosphatase Lactate Dehydrogenase Total Protein Albumin Globulin Vitamin B12 HCG, Qual Urine Color Urine Appearance Urine pH Ur Specific [place] Urine Protein Urine Glucose (UA) Urine Ketones Urine Blood Urine Nitrate Urine Bilirubin Urine Urobilinogen Ur Leukocyte Esterase Urine RBC Urine WBC Ur Squamous Epith Cells Ur Transition Epith Cell Amorphous Sediment Urine Bacteria Blood Type Rho(D) Type Antibody Screen Crossmatch 09/10/22 09/10/22 09/10/22 02:41 02:41 02:41 WBC 7.9 RBC 3.65 L Hgb 9.1 L D Hct 30.1 L D MCV 82.5 MCH 24.9 L D MCHC 30.2 D RDW 19.9 H Plt Count 201 MPV 9.1 Neut % (Auto) 69.3 Lymph % (Auto) 24.9 [place] % (Auto) 4.8 Eos % (Auto) 0.1 Baso % (Auto) 0.5 Neut # (Auto) 5.49 Lymph # (Auto) 2.0 [place] # (Auto) 0.4 Eos # (Auto) 0.0 Baso # (Auto) 0.0 Nucleated RBC % (auto) 0.4 Nucleated RBCs # 0.0 Haptoglobin PT INR APTT Sodium 137 Potassium 3.6 Chloride 105 Carbon Dioxide 16 L Anion Gap 19.6 H BUN 11 Creatinine 0.5 GFR Calculation 145.9 H Glucose 59 L POC Glucose Calculated Osmolality 281 L Lactic Acid Calcium 8.1 L Iron 295 H TIBC 315 % Saturation 93.6 H Unsat Iron Binding 20 L Total Bilirubin 1.0 AST 42 H ALT 47 H Alkaline Phosphatase 77 Lactate Dehydrogenase Total Protein 5.8 L Albumin 3.3 L Globulin 2.5 Vitamin B12 765 HCG, Qual Urine Color Urine Appearance Urine pH Ur Specific [place] Urine Protein Urine Glucose (UA) Urine Ketones Urine Blood Urine Nitrate Urine Bilirubin Urine Urobilinogen Ur Leukocyte Esterase Urine RBC Urine WBC Ur Squamous Epith Cells Ur Transition Epith Cell Amorphous Sediment Urine Bacteria Blood Type Rho(D) Type Antibody Screen Crossmatch 09/09/22 09/09/22 09/09/22 22:42 22:06 22:06 WBC RBC Hgb Cancelled Hct Cancelled MCV MCH MCHC RDW Plt Count MPV Neut % (Auto) Lymph % (Auto) [place] % (Auto) Eos % (Auto) Baso % (Auto) Neut # (Auto) Lymph # (Auto) [place] # (Auto) Eos # (Auto) Baso # (Auto) Nucleated RBC % (auto) Nucleated RBCs # Haptoglobin PT INR APTT Sodium Potassium Chloride Carbon Dioxide Anion Gap BUN Creatinine GFR Calculation Glucose POC Glucose Calculated Osmolality Lactic Acid Calcium Iron TIBC % Saturation Unsat Iron Binding Total Bilirubin AST ALT Alkaline Phosphatase Lactate Dehydrogenase Total Protein Albumin Globulin Vitamin B12 HCG, Qual Negative Urine Color Yellow Urine Appearance Clear Urine pH 5 Ur Specific [place] 1.010 Urine Protein Trace Urine Glucose (UA) Norm Urine Ketones 3+ H Urine Blood 3+ H Urine Nitrate Negative Urine Bilirubin Neg Urine Urobilinogen Norm Ur Leukocyte Esterase Negative Urine RBC 5-10 H Urine WBC 0-4 H Ur Squamous Epith Cells 0-4 H Ur Transition Epith Cell Rare Amorphous Sediment Not Reportable Urine Bacteria None Blood Type Rho(D) Type Antibody Screen Crossmatch 09/09/22 09/09/22 09/09/22 17:15 17:13 17:13 WBC RBC Hgb Hct MCV MCH MCHC RDW Plt Count MPV Neut % (Auto) Lymph % (Auto) [place] % (Auto) Eos % (Auto) Baso % (Auto) Neut # (Auto) Lymph # (Auto) [place] # (Auto) Eos # (Auto) Baso # (Auto) Nucleated RBC % (auto) Nucleated RBCs # Haptoglobin 83.0 PT 14.10 INR 1.05 APTT 32.2 Sodium Potassium Chloride Carbon Dioxide Anion Gap BUN Creatinine GFR Calculation Glucose POC Glucose Calculated Osmolality Lactic Acid 0.7 Calcium Iron TIBC % Saturation Unsat Iron Binding Total Bilirubin AST ALT Alkaline Phosphatase Lactate Dehydrogenase 159 Total Protein Albumin Globulin Vitamin B12 HCG, Qual Urine Color Urine Appearance Urine pH Ur Specific [place] Urine Protein Urine Glucose (UA) Urine Ketones Urine Blood Urine Nitrate Urine Bilirubin Urine Urobilinogen Ur Leukocyte Esterase Urine RBC Urine WBC Ur Squamous Epith Cells Ur Transition Epith Cell Amorphous Sediment Urine Bacteria Blood Type Rho(D) Type Antibody Screen Crossmatch 09/09/22 09/09/22 09/09/22 17:13 17:13 17:13 WBC 7.3 RBC 2.48 L Hgb 5.5 L* Hct 19.8 L* MCV 79.8 L MCH 22.2 L MCHC 27.8 L RDW 22.5 H Plt Count 249 MPV 8.9 Neut % (Auto) 85.1 Lymph % (Auto) 11.1 [place] % (Auto) 3.0 Eos % (Auto) 0.0 Baso % (Auto) 0.4 Neut # (Auto) 6.21 Lymph # (Auto) 0.8 [place] # (Auto) 0.2 Eos # (Auto) 0.0 Baso # (Auto) 0.0 Nucleated RBC % (auto) 0 Nucleated RBCs # 0.0 Haptoglobin PT INR APTT Sodium 138 Potassium 3.5 Chloride 106 Carbon Dioxide 18 L Anion Gap 17.5 BUN 12 Creatinine 0.6 GFR Calculation 118.2 Glucose 86 POC Glucose Calculated Osmolality 285 Lactic Acid Calcium 8.1 L Iron TIBC % Saturation Unsat Iron Binding Total Bilirubin 0.2 AST 49 H ALT 49 H Alkaline Phosphatase 80 Lactate Dehydrogenase Total Protein 5.5 L Albumin 3.2 L Globulin 2.3 Vitamin B12 HCG, Qual Urine Color Urine Appearance Urine pH Ur Specific [place] Urine Protein Urine Glucose (UA) Urine Ketones Urine Blood Urine Nitrate Urine Bilirubin Urine Urobilinogen Ur Leukocyte Esterase Urine RBC Urine WBC Ur Squamous Epith Cells Ur Transition Epith Cell Amorphous Sediment Urine Bacteria Blood Type Pending Rho(D) Type Positive Antibody Screen Negative Crossmatch See Detail Completed Studies During Hospitalization Category Date Time Status CT chest abd pel w con* Stat Cat Scan 09/09/22 17:38 Completed Laboratory Last Values WBC 7.9 10^3/uL (4.0-10.0) 09/10/22 02:41 RBC 3.65 10^6/uL (4.1-5.3) L 09/10/22 02:41 Hgb 7.8 g/dL (11.5-15.3) L 09/10/22 14:15 Hct 24.9 % (37.0-47.0) L 09/10/22 14:15 MCV 82.5 fl (81-99) 09/10/22 02:41 MCH 24.9 pg (28.0-34.0) L D 09/10/22 02:41 MCHC 30.2 g/dL (30.0-36.0) D 09/10/22 02:41 RDW 19.9 % (12.1-15.1) H 09/10/22 02:41 Plt Count 201 10^3/cmm (130-400) 09/10/22 02:41 MPV 9.1 fL (7.4-10.4) 09/10/22 02:41 Neut % (Auto) 69.3 % 09/10/22 02:41 Lymph % (Auto) 24.9 % 09/10/22 02:41 [place] % (Auto) 4.8 % 09/10/22 02:41 Eos % (Auto) 0.1 % 09/10/22 02:41 Baso % (Auto) 0.5 % 09/10/22 02:41 Neut # (Auto) 5.49 10^3/uL (1.8-7.7) 09/10/22 02:41 Lymph # (Auto) 2.0 10^3/uL (0.8-4.8) 09/10/22 02:41 [place] # (Auto) 0.4 10^3/uL (0.2-0.9) 09/10/22 02:41 Eos # (Auto) 0.0 10^3/uL (0.0-0.8) 09/10/22 02:41 Baso # (Auto) 0.0 10^3/uL (0.0-0.1) 09/10/22 02:41 Nucleated RBC % (auto) 0.4 % 09/10/22 02:41 Nucleated RBCs # 0.0 /100WBC 09/10/22 02:41 Haptoglobin 83.0 mg/L (30-200) 09/09/22 17:15 PT 14.10 SECONDS (12.1-14.9) 09/09/22 17:13 INR 1.05 (0.8-1.2) 09/09/22 17:13 APTT 32.2 SECONDS (23.9-36.7) 09/09/22 17:13 Sodium 137 mmol/L (136-145) 09/10/22 02:41 Potassium 3.6 mmol/L (3.5-5.1) 09/10/22 02:41 Chloride 105 mmol/L (98-107) 09/10/22 02:41 Carbon Dioxide 16 mmol/L (22-29) L 09/10/22 02:41 Anion Gap 19.6 (5-19) H 09/10/22 02:41 BUN 11 mg/dL (6-20) 09/10/22 02:41 Creatinine 0.5 mg/dL (0.5-0.9) 09/10/22 02:41 GFR Calculation 145.9 mL/min (90-130) H 09/10/22 02:41 Glucose 59 mg/dL (65-115) L 09/10/22 02:41 POC Glucose 221 mg/dL (70-110) H 09/10/22 07:56 Calculated Osmolality 281 mOsm/kg (285-295) L 09/10/22 02:41 Lactic Acid 0.7 mmol/L (0.5-2.2) 09/09/22 17:13 Calcium 8.1 mg/dL (8.5-10.5) L 09/10/22 02:41 Iron 295 ug/dL (37-145) H 09/10/22 02:41 TIBC 315 mcg/dl 09/10/22 02:41 % Saturation 93.6 % (20-50) H 09/10/22 02:41 Unsat Iron Binding 20 ug/dL (112-347) L 09/10/22 02:41 Total Bilirubin 1.0 mg/dL (0.15-1.2) 09/10/22 02:41 AST 42 U/L (0-32) H 09/10/22 02:41 ALT 47 U/L (0-33) H 09/10/22 02:41 Alkaline Phosphatase 77 U/L (35-105) 09/10/22 02:41 Lactate Dehydrogenase 159 U/L (135-214) 09/09/22 17:15 Total Protein 5.8 g/dL (6.6-8.7) L 09/10/22 02:41 Albumin 3.3 g/dL (3.5-5.2) L 09/10/22 02:41 Globulin 2.5 g/dL (1.3-4.6) 09/10/22 02:41 Vitamin B12 765 pg/mL (232-1245) 09/10/22 02:41 HCG, Qual Negative (Negative) 09/09/22 22:06 Urine Color Yellow (Yellow) 09/09/22 22:06 Urine Appearance Clear (CLEAR) 09/09/22 22:06 Urine pH 5 (5-7) 09/09/22 22:06 Ur Specific [place] 1.010 (1.005-1.030) 09/09/22 22:06 Urine Protein Trace (Negative) 09/09/22 22:06 Urine Glucose (UA) Norm (Normal) 09/09/22 22:06 Urine Ketones 3+ (Negative) H 09/09/22 22:06 Urine Blood 3+ (Negative) H 09/09/22 22:06 Urine Nitrate Negative (Negative) 09/09/22 22:06 Urine Bilirubin Neg (Negative) 09/09/22 22:06 Urine Urobilinogen Norm mg/dL (Negative) 09/09/22 22:06 Ur Leukocyte Esterase Negative (Negative) 09/09/22 22:06 Urine RBC 5-10 /hpf (0-2) H 09/09/22 22:06 Urine WBC 0-4 /hpf (0-5) H 09/09/22 22:06 Ur Squamous Epith Cells 0-4 /hpf (0-5) H 09/09/22 22:06 Ur Transition Epith Cell Rare /hpf 09/09/22 22:06 Amorphous Sediment Not Reportable 09/09/22 22:06 Urine Bacteria None /hpf (NONE) 09/09/22 22:06 Rho(D) Type Positive 09/09/22 17:13 Antibody Screen Negative 09/09/22 17:13 Crossmatch See Detail 09/09/22 17:13 Radiology Impressions Chest/Abdomen/Pelvis CT 09/09/22 17:38 IMPRESSION: 1. No CT evidence of acute intrathoracic pathology. 2. Additional findings, as above. IMPRESSION: 1. Lobular dependent soft tissue attenuation in the stomach, possibly ingested material or blood products. No definite active extravasation of contrast. 2. Additional findings, as above. Recent Clincial Data Last Vital Signs Temp 97.8 F 09/10/22 04:00 Pulse 118 H 09/10/22 15:38 Resp 14 09/10/22 15:38 BP 136/84 09/10/22 15:38 Pulse Ox 90 09/10/22 15:38 O2 Del Method 09/10/22 04:00 Vital Signs Temp Pulse Resp BP Pulse Ox O2 Del Method 09/10/22 15:22 119 H 9 L 136/84 92 09/10/22 15:38 118 H 14 136/84 90 09/10/22 15:07 112 H 9 L 135/78 98 09/10/22 14:51 174 H 29 H 116/82 100 09/10/22 14:00 140 H 19 H 149/87 99 09/10/22 13:00 140/84 09/10/22 14:00 158 H 09/10/22 12:00 78 10 L 128/76 100 09/10/22 11:39 19 H 09/10/22 11:00 101 H 13 100 09/10/22 10:00 88 15 149/82 100 09/10/22 09:00 77 14 100 09/10/22 08:25 104 H 16 100 09/10/22 07:00 119/77 09/10/22 06:00 95 14 118/83 100 09/10/22 05:00 69 15 143/80 100 09/10/22 06:00 72 09/10/22 05:22 14 100 09/10/22 04:00 97.8 F 76 22 H 113/72 100 Room Air Intake & Output/Weight 09/08/22 09/09/22 09/10/22 09/11/22 06:59 06:59 06:59 06:59 Intake Total 1060 / 1060 2377.917 / 2377.917 Output Total 700 / 700 750 / 750 Balance 360 / 360 1627.917 / 1627.917 Weight 59.103 kg Vitals Last Vital Signs Temp 97.8 F 09/10/22 04:00 Pulse 118 H 09/10/22 15:38 Resp 14 09/10/22 15:38 BP 136/84 09/10/22 15:38 Pulse Ox 90 09/10/22 15:38 O2 Del Method 09/10/22 04:00 TS Medications Medications Hydromorphone HCl (Hydromorphone 1 Mg/Ml Inj 1 Ml) 1 mg IVP Q6H PRN PRN Reason: pain Last Admin: 09/10/22 14:12 Dose: 1 mg Sodium Chloride (Sodium Chloride 0.9%) 1,000 mls @ 30 mls/hr IV .Q24H LEYDI Last Infusion: 09/10/22 15:02 Dose: 0 mls/hr Lidocaine HCl (Lidocaine 1% Inj 10 Ml (Per Ml)) 0.1 ml INTRADERMA PRN PRN PRN Reason: anesthetic prior to IV start Stop: 09/11/22 07:58 Lidocaine HCl (Lidocaine 2% Viscous 15 Ml Udc) 1 ml TOPICAL PRN PRN PRN Reason: Anesthetic prior to IV start Metoclopramide HCl (Metoclopramide 5 Mg/Ml Sdv 2 Ml) 10 mg IVP Q6H PRN PRN Reason: NAUSEA AND VOMITING Last Admin: 09/10/22 13:18 Dose: 10 mg Midazolam HCl (Midazolam 1 Mg/Ml Inj 2 Ml) 2 mg IVP Q5M PRN PRN Reason: Preop Anxiety Morphine Sulfate (Morphine 4 Mg/Ml Sdv 1 Ml) 0 mg IVP Q5M PRN PRN Reason: Breakthrough Pain PACU PhaseII Naloxone HCl (Naloxone 0.4 Mg/Ml Sdv) 0.1 mg IVP Q2M PRN PRN Reason: RESPIRATORY RATE < 8/MIN Ondansetron HCl (Ondansetron 2 Mg/Ml Sdv 2 Ml) 4 mg IVP Q8H PRN PRN Reason: NAUSEA AND VOMITING Last Admin: 09/10/22 14:12 Dose: 4 mg Ondansetron HCl (Ondansetron 2 Mg/Ml Sdv 2 Ml) 8 mg IVP Q8H PRN PRN Reason: NAUSEA AND VOMITING Ondansetron HCl (Ondansetron 2 Mg/Ml Sdv 2 Ml) 4 mg IVP Q15M PRN PRN Reason: Nausea/Vomiting PACU PHASE II Pantoprazole Sodium (Pantoprazole 40 Mg Sdv) 40 mg IVP Q12H [facility] Last Admin: 09/10/22 10:55 Dose: 40 mg Scopolamine (Scopolamine 1.5 Patch) 1 patch TRANSDERMA Q3D [facility] Last Admin: 09/09/22 22:54 Dose: 1 patch Sucralfate (Sucralfate 1 Gm/10 Ml Oral Liq Udc) 1 gm PO AC&BEDTIME [facility] Last Admin: 09/10/22 10:56 Dose: 1 gm Discontinued Medications Benzocaine (Cetylpyridinium Lozenge) 1 each MUCOUS MEM ONCE ONE Stop: 09/10/22 08:00 Last Admin: 09/10/22 11:20 Dose: Not Given Sodium Chloride (Sodium Chloride 0.9%) 1,000 mls @ 999 mls/hr IV .Q1H1M ONE Stop: 09/09/22 17:23 Last Infusion: 09/10/22 07:48 Dose: Infused Tranexamic Acid 1,000 mg/ (Sodium Chloride) 110 mls @ 330 mls/hr IV Q1H [facility] Stop: 09/09/22 20:49 Last Infusion: 09/09/22 22:08 Dose: Infused Pantoprazole Sodium 40 mg/ (Sodium Chloride) 100 mls @ 20 mls/hr IV .Q5H [facility] Last Admin: 09/10/22 11:10 Dose: Not Given Acetaminophen (Acetaminophen) 1,000 mg in 100 mls @ 400 mls/hr IV ONCE ONE Stop: 09/09/22 22:44 Last Infusion: 09/09/22 23:07 Dose: Infused Sodium Chloride (Sodium Chloride 0.9% (100 Ml)) Confirm Administered Dose 100 mls @ as directed .ROUTE .STK-MED ONE Stop: 09/09/22 22:44 Last Infusion: 09/09/22 23:08 Dose: Infused Dextrose/Sodium Chloride (Dextrose 5%-Sod Chloride 0.9%) 1,000 mls @ 75 mls/hr IV .[id number] [facility] Last Infusion: 09/10/22 10:53 Dose: Infused Dextrose 35.5 ml/ Sterile (Water 14.5 ml/ N/A) 50 mls @ 600 mls/hr IVP ONCE ONE Stop: 09/10/22 07:04 Last Infusion: 09/10/22 07:38 Dose: Infused Sodium Chloride (Sodium Chloride 0.9%) 1,000 mls @ 30 mls/hr IV .Q24H [facility] Stop: 09/11/22 07:59 Last Admin: 09/10/22 11:10 Dose: Not Given Sodium Chloride (Sodium Chloride 0.9%) 1,000 mls @ 999 mls/hr IV .Q1H1M ONE Stop: 09/10/22 15:07 Last Infusion: 09/10/22 15:41 Dose: 0 mls/hr Tranexamic Acid 1,000 mg/ (Sodium Chloride) 110 mls @ 330 mls/hr IV ONCE ONE Stop: 09/10/22 14:49 Last Infusion: 09/10/22 15:02 Dose: Infused Iohexol (Iohexol 350 Mg/Ml 500 Ml Btl (Per Ml)) 95 ml .ROUTE .ST-MED ONE Stop: 09/09/22 18:39 Morphine Sulfate (Morphine 4 Mg/Ml Sdv 1 Ml) 4 mg IVP ONCE ONE Stop: 09/09/22 16:24 Last Admin: 09/09/22 16:51 Dose: 4 mg Morphine Sulfate (Morphine 4 Mg/Ml Sdv 1 Ml) 4 mg IVP Q1H PRN PRN Reason: pain Stop: 09/09/22 21:46 Last Admin: 09/09/22 19:06 Dose: 4 mg Morphine Sulfate (Morphine 4 Mg/Ml Sdv 1 Ml) 2 mg IVP Q6H PRN PRN Reason: SEVERE PAIN Last Admin: 09/10/22 00:49 Dose: 2 mg Ondansetron HCl (Ondansetron 2 Mg/Ml Sdv 2 Ml) 4 mg IVP ONCE ONE Stop: 09/09/22 16:24 Last Admin: 09/09/22 16:51 Dose: 4 mg Pantoprazole Sodium (Pantoprazole 40 Mg Sdv) 80 mg IVP ONCE ONE Stop: 09/09/22 18:14 Last Admin: 09/09/22 18:53 Dose: 80 mg Sodium Chloride (Sodium Chloride 0.9% 100 Ml Bag) 50 ml IV ONCE ONE Stop: 09/09/22 17:42 Last Admin: 09/09/22 20:56 Dose: Not Given Allergies No Known Allergies Allergy (Verified 09/10/22 07:34) Home Medications baclofen 10 mg tablet 10 mg PO BID PRN Pain 09/09/22 [History Confirmed 09/10/22] buspirone 15 mg tablet 15 mg PO BID PRN Anxiety 09/09/22 [History Confirmed 09/10/22] gabapentin 100 mg capsule 100 mg PO BID 09/09/22 [History Confirmed 09/10/22] hydroxyzine pamoate 25 mg capsule 25 mg PO BEDTIME PRN Anxiety 09/09/22 [History Confirmed 09/10/22] ibuprofen 800 mg tablet 800 mg PO Q6H PRN Pain 09/09/22 [History Confirmed 09/10/22] acetaminophen 500 mg tablet 1,000 - 1,500 mg PO Q6H PRN Pain 09/10/22 [History Confirmed 09/10/22] ondansetron 8 mg disintegrating tablet 8 mg PO Q4H PRN Nausea And Vomiting 09/10/22 [History Confirmed 09/10/22] Discharge Plan Discharge Patient Disposition: Home Condition: Stable Prescriptions: No Action baclofen 10 mg tablet 10 mg PO BID PRN (Reason: Pain) gabapentin 100 mg capsule 100 mg PO BID ibuprofen 800 mg tablet 800 mg PO Q6H PRN (Reason: Pain) hydroxyzine pamoate 25 mg capsule 25 mg PO BEDTIME PRN (Reason: Anxiety) buspirone 15 mg tablet 15 mg PO BID PRN (Reason: Anxiety) Tylenol Ex Str Rapid Release 500 mg Tablet 1,000 - 1,500 mg PO Q6H PRN (Reason: Pain) ondansetron 8 mg tablet,disintegrating 8 mg PO Q4H PRN (Reason: Nausea And Vomiting) Discharge Orders: Transfer Out of Facility (Order); Ordered 09/10/22 Ordered By: Tomi Willson Transfer Attestations Time Spent in Transfer Care: less than 30 min Quality Metrics Clinical Quality Measures [ No reported AMI, CVA or VTE this stay] Coding Level of Care Code Acute Code for Chg Fwd Diagnoses Anemia due to blood loss D50.0 Acute upper gastrointestinal bleeding K92.2 History of Z98.891 Duodenal ulcer K26.9 Gastric ulcer K25.9 NSAID-induced duodenal ulcer K26.9; T39.395A
--- NOTE | 2022-09-10 16:31 | PC.NURSE ---
Patient Transferred Out of Facility Patient transferred via EMS to [facility] ICU room 2417. Report called to nurse Sena. Patient on room air and is alert and oriented x4 with two units PRBC infusing upon transfer.
--- NOTE | 2022-09-10 22:08 | W.PM.EVENTAC ---
Event Note Event Note: Patient had been transferred out of facility this afternoon for procedure at a different hospital. Per documentation she left he ICU at 16:12, tele confirms she was off by 16:20.
--- NOTE | 2022-09-10 22:17 | PC.NURSE ---
Patient belongings remain in room including clothing and purse. Planned readmit in the morning from [facility] after procedure.
== END 2022-09-10 16:11 | disposition short-term general hospital (02) | DRG 776 ==
LOC: ER 19:30 → ICU 20:37
PROVIDERS: Surgery; Admitting Provider Student in an Organized Health Care Education/Training Program; Emergency Provider Emergency Medicine; PCP Registered Nurse; Visit Provider Internal Medicine
PROC: 0DJ08ZZ Inspection of Upper Intestinal Tract, Via Natural or Artificial Opening Endoscopic (ICD-10-PCS; CPT 43235; principal; 2022-09-10 07:30)
DX: O90.89 Other complications of the puerperium, not elsewhere classified (principal); K25.4 Chronic or unspecified gastric ulcer with hemorrhage; K26.4 Chronic or unspecified duodenal ulcer with hemorrhage; O90.81 Anemia of the puerperium; D50.0 Iron deficiency anemia secondary to blood loss (chronic); F10.10 Alcohol abuse, uncomplicated; O9A.23 Injury, poisoning and certain other consequences of external causes complicating the puerperium; T39.395A Adverse effect of other nonsteroidal anti-inflammatory drugs [NSAID], initial encounter
CPT/HCPCS: 36415; 36416; 36430; 43239; 71260; 74177; 80053; 81001; 81003; 81025; 82607; 82962; 83010; 83540; 83550; 83605; 83615; 85014; 85018; 85025; 85610; 85730; 86850; 86900; 86920; 87040; 88305; 88342; 96365; 96375; 96376; 99285; C9113; J0131; J1170; J2270; J2405; J2765; J7030; J7042; P9016; P9040; Q9967

== ENCOUNTER 2022-09-11 09:24 | Inpatient (IN) | payer BC, MEDICAID, SELFPAY ==
[2022-09-11] VITALS (16 sets, daily range): BP systolic 113–143; BP diastolic 70–92; PULSE 68–168; RESP 13–24; TEMP 36.5–36.6; O2SAT 90–95; BMI 24.5
--- NOTE | 2022-09-11 11:24 | PC.PHAR ---
medications were verified with pt on 09/10/22 when pt was in [facility] transferred pt to [facility] and [facility] is transferring pts back-medications entered were the medications entered on 09/10/22
--- NOTE | 2022-09-11 13:55 | P.HP_ITS ---
Providers/Chief Complaint Admitting Physician: Tmoi Willson MD Primary Care Provider: Joanne Miranda APRN Chief Complaint: GI BLEED History of Present Illness Flor Fonseca is a 27 year old female who was sent to [facility] for interventional radiology embolization of gastroduodenal artery because of active bleeding ulcer of duodenum, she will experiencing hematemesis, she is returning today, she is hemodynamically stable I have requested H&H, since she is medically stable we can observe her on MedSurg and possible discharge her in next 24 hours EGD showed gastritis, gastric and duodenal ulcer Received 4 unit PRBC, she was transferred to [facility] before she could receive platelets. Review of Systems Const: Denies: fever(s) Eyes: Denies: change in vision ENMT: Denies: throat pain Card: Denies: chest pain Resp: Denies: dyspnea GI: Reports: abdominal pain : Denies: flank pain Musc: Denies: neck pain Skin/Breast: Denies: rash Neuro: Denies: headache(s) Psych: Denies: anxiety Endo: Denies: polyuria Sundeep/Lymph: Denies: easy bruising All/Imm: Denies: urticaria Medications/Allergies Home Medications Medication Instructions Recorded Confirmed Last Taken Type baclofen 10 mg tablet 10 mg PO BID PRN Pain 09/09/22 09/11/22 Unknown History buspirone 15 mg tablet 15 mg PO BID PRN Anxiety 09/09/22 09/11/22 Unknown History gabapentin 100 mg capsule 100 mg PO BID 09/09/22 09/11/22 1 Week Ago History ~09/03/22 rx filled 08/25/22 30d hydroxyzine pamoate 25 mg capsule 25 mg PO BEDTIME PRN Anxiety 09/09/22 09/11/22 Unknown History ibuprofen 800 mg tablet 800 mg PO Q6H PRN Pain 09/09/22 09/11/22 Unknown History acetaminophen 500 mg tablet 1,000 - 1,500 mg PO Q6H PRN Pain 09/10/22 09/11/22 Unknown History ondansetron 8 mg disintegrating 8 mg PO Q4H PRN Nausea And Vomiting 09/10/22 09/11/22 Unknown History tablet Allergies Allergy/AdvReac Type Severity Reaction Status Date / Time No Known Allergies Allergy Verified 09/10/22 07:34 PFSH Acute PFSH: Medical History Gastric ulcer NSAID-induced duodenal ulcer Surgical History History of Family History Denies family history of Clotting disorder Bleeding disorder Physical Exam Narrative: Patient is awake and alert Nonfocal neuro exam Abdomen soft Hemodynamically stable Pleasant cooperative Hallucination after getting morphine Otherwise stable Nonfocal neuro exam Doing well on room air Data 09/11/22 14:47 A&P Assessment and plan (1) Duodenal ulcer: (2) Anemia due to blood loss: (3) Mesenteric arterial embolization: (4) Acute upper gastrointestinal bleeding: Plan Hematemesis Duodenal ulcer Status post gastroduodenal artery embolization by IR at [facility] H&H Full liquid diet Protonix Opioids for pain management NSAID induced ulcers Follow-up for H. pylori Full code Observe on MedSur Planning to discharge in next 24 hours Attestations Medical Necessity Statement*: gordo burgos Time Spent in Patient Care: 30 Coding Level of Care Code Acute Code for Chg Fwd Diagnoses Duodenal ulcer K26.9 Anemia due to blood loss D50.0 Mesenteric arterial embolization K55.059 Acute upper gastrointestinal bleeding K92.2
--- NOTE | 2022-09-11 14:00 | PC.NURSE ---
Pt was admitted to ICU this afternoon around 1320. All belongings already in room in closet. IV in left AC present. Right groin puncture wound has dressing over non-bleeding site.
[2022-09-11] MEDS: morphine 4 mg/mL SDV 1 mL 2 MG IVP (14:44)
[2022-09-11 14:55] LABS: Basophils % 0.5 %; Eosinophils % 0.5 %; Hematocrit 28.5 % (37.0-47.0); Hemoglobin 9.2 g/dL (11.5-15.3); Lymphocytes # 1.7 10^3/uL (0.8-4.8); Lymphocytes % 26.2 %; Mean Corpuscular HGB Conc 32.3 g/dL (30.0-36.0); Mean Corpuscular Hemoglobin 27.6 pg (28.0-34.0); Mean Corpuscular Volume 85.6 fl (81-99); Mean Platelet Volume 8.7 fL (7.4-10.4); Monocytes # 0.4 10^3/uL (0.2-0.9); Monocytes % 6.3 %; Neutrophils # 4.38 10^3/uL (1.8-7.7); Neutrophils % 65.9 %; Nucleated Red Blood Cells % 0.5 %; Platelet Count 108 10^3/cmm (130-400); Red Blood Count 3.33 10^6/uL (4.1-5.3); Red Cell Distribution Width 17.3 % (12.1-15.1); White Blood Count 6.6 10^3/uL (4.0-10.0)
[2022-09-11] MEDS: ondansetron 2 mg/ML SDV 2 mL 4 MG IVP (16:48)
[2022-09-11] MEDS: pantoprazole 40 mg SDV IVP (17:03)
[2022-09-11] MEDS: morphine IR 15 mg Tablet PO (17:03)
[2022-09-11] MEDS: metoclopramide 5 mg/mL SDV 2 mL IVP (17:42)
[2022-09-11] MEDS: TRAMadol 50 mg Tablet PO (19:37)
[2022-09-11] MEDS: dexmedetomidine 400 MCG in sodium chloride 0.9% (100 ml) 100 ML IV (20:15)
[2022-09-12] VITALS (20 sets, daily range): BP systolic 87–129; BP diastolic 57–92; PULSE 77–129; RESP 12–29; TEMP 36.6; O2SAT 92–97
[2022-09-12] MEDS: ondansetron 2 mg/ML SDV 2 mL 4 MG IVP ×3 (00:10→10:56)
[2022-09-12 00:43] LABS: Basophils % 0.4 %; Eosinophils % 0.5 %; Lymphocytes # 1.8 10^3/uL (0.8-4.8); Lymphocytes % 31.6 %; Mean Corpuscular HGB Conc 32.3 g/dL (30.0-36.0); Mean Corpuscular Volume 86.7 fl (81-99); Mean Platelet Volume 9.1 fL (7.4-10.4); Monocytes # 0.5 10^3/uL (0.2-0.9); Monocytes % 8.8 %; Neutrophils # 3.22 10^3/uL (1.8-7.7); Neutrophils % 58.2 %; Nucleated Red Blood Cells % 0.7 %; Platelet Count 81 10^3/cmm (130-400); Red Blood Count 2.25 10^6/uL (4.1-5.3); Red Cell Distribution Width 17.7 % (12.1-15.1); White Blood Count 5.5 10^3/uL (4.0-10.0)
[2022-09-12 01:03] LABS: Anion Gap 10.1 (5-19); Blood Urea Nitrogen 11 mg/dL (6-20); Carbon Dioxide 25 mmol/L (22-29); Chloride 103 mmol/L (98-107); Glucose 100 mg/dL (65-115); Hematocrit 19.5 % (37.0-47.0); Hemoglobin 6.3 g/dL (11.5-15.3)
[2022-09-12 01:18] LABS: Calcium 7.8 mg/dL (8.5-10.5); Glomerular Filtration Rate 188.7 mL/min (90-130); Magnesium 1.6 mg/dL (1.7-2.3); Osmolality Calculated 279 mOsm/kg (285-295); Potassium 3.1 mmol/L (3.5-5.1); Sodium 135 mmol/L (136-145)
[2022-09-12] MEDS: metoclopramide 5 mg/mL SDV 2 mL IVP ×2 (02:22→07:48)
[2022-09-12] MEDS: TRAMadol 50 mg Tablet PO ×2 (03:45→11:05)
[2022-09-12] MEDS: baclofen 10 mg Tablet PO (03:46)
[2022-09-12] MEDS: sodium chloride 0.9% (100 ml) 200 ML 30 ML (04:17)
--- NOTE | 2022-09-12 06:10 | PC.NURSE ---
At beginning of shift, pt became increasingly confused, exhibiting hallucinations and anxiety. Pt stated that she was hearing her friend's voice, her baby crying, and people talking about her in the hallway. She was texting family that she was being held against her will, she was being arrested and we were planning to take her kids from her. I notified Dr Hernandez of her state. Precedex was ordered. The patient responded well to this medication, and became less anxious within an hour and rested on and off throughout the shift. Precedex is currently on hold, and pt remains calm. AM labs were drawn and resulted in an HGB of 6.3 and HCT of 19.5. Dr Hernandez was notified of the critical lab, 2 units of PRBCs have been ordered. The first is completed, the second is currently infusing. Pt has remained nauseated, PRN zofran and reglan has been given multiple times. Multiple bloody stools documented, but amount of blood per BM is declining.
--- NOTE | 2022-09-12 06:47 | PM.PN ---
Subjective Subjective: Patient became tachycardic hemoglobin dropped below 7 Requiring 2 unit PRBC Required Precedex overnight for agitation and confusion Melanotic stools Patient is tachycardic, endorsing feeling anxious, I have started her BuSpar and gabapentin this morning Vitals/I&O/Wt Last Vital Signs Temp 97.9 F 09/12/22 05:30 Pulse 103 H 09/12/22 05:30 Resp 17 09/12/22 05:30 BP 115/71 09/12/22 05:30 Pulse Ox 97 09/12/22 05:30 O2 Del Method 09/11/22 19:51 09/11/22 09/11/22 09/12/22 14:59 22:59 06:59 Intake Total 137.300 / 137.300 267.633 / 404.933 Balance 137.300 / 137.300 267.633 / 404.933 Weight last 48 hrs Weight 58.967 kg Weight 58.831 kg Physical Exam Narrative: Young female Became agitated overnight Groin area without any pathology S1, S2 sinus tachycardia Afebrile Hemodynamically stable Pale complexion Data 09/12/22 00:31 09/12/22 00:31 A&P Assessment and plan (1) Mesenteric arterial embolization: (2) Duodenal ulcer: (3) Anemia due to blood loss: (4) Complaint of melena: (5) Acute upper gastrointestinal bleeding: Plan Melanotic stools 5 melanotic stools last night Decreasing frequency this am Requiring 2 unit PRBC Monitor for any signs of dilutional thrombocytopenia This will be her sixth unit PRBC No active hematemesis however now she is experiencing melanotic stools, She is currently on Protonix 40 mg IV twice daily We will add sucralfate, will touch base with Dr. Hayes this morning as well I will change admission orders to ICU She is not ready to be discharged Status post gastroduodenal IR embolization She was made n.p.o. overnight, clear liquid diet Full code DVT prophylaxis SCDs Sinus tachycardia likely anxiety related, resume anxiolytics Attestations Medical Necessity Statement*: Continue hospitalization Time Spent in Patient Care: 30 Coding Level of Care Code Acute Code for Chg Fwd Diagnoses Mesenteric arterial embolization K55.059 Duodenal ulcer K26.9 Anemia due to blood loss D50.0 Complaint of melena K92.1 Acute upper gastrointestinal bleeding K92.2
[2022-09-12] MEDS: sucralfate 1 gm/10 mL Oral Liq UDC PO ×2 (07:48→10:56)
[2022-09-12] MEDS: gabapentin 100 mg Capsule PO (08:02)
[2022-09-12] MEDS: BuSPIRONE 10 mg Tablet 15 MG PO (08:03)
[2022-09-12] MEDS: pantoprazole 40 mg SDV IVP (08:05)
[2022-09-12 08:34] LABS: Hematocrit 30.4 % (37.0-47.0); Hemoglobin 10.1 g/dL (11.5-15.3)
[2022-09-12] MEDS: potassium chloride ER 20 mEq Tablet 40 MEQ PO (09:35)
--- NOTE | 2022-09-12 10:29 | PC.CHAP ---
Pastoral Care Encounter/Spiritual Assessment Type of Contact [] Declined bisque kiln placer visit [] Patient/Family/Request visit [] Outpatient visit [] Follow-up visit [] Physician referral [] Code/Alert [x] Routine visit [] Staff referral [] Actively dying [] Patient sleeping [x] Family support [] [] Out of room [] Palliative care [] [] Receiving care in room [] Pre-surgical visit [] Trauma [] Long length of stay [x] ICU visit [x] Other: prayed for strength... for healing.. has three kids at home Relational/Emotional Strength [] Patient feels connected with others/family/visitors/staff [] Distress [] Loneliness/isolation [] Abandonment Spirituality of Patient [] Person of Guerline [] Attends Orthodox of their Guerline [] Believes in Prayer [] Reads Bible or Quaker materials [] There are Spiritual issues to be addressed Coo Interventions [x] Prayer [] Active listening [] Non-anxious presence [] Spiritual/emotional support [] Crisis/trauma care [] Spiritual counseling [] Bereavement support [] Provided bereavement packet [] Provided Bible/devotional materials [] Provided toy/stuffed animal, coloring book to patient or family member [] Provided Communion [] Anointing/[place] [] Salvation [x] Completed spiritual assessment [] Other: Impact on Illness or Injury [] Angry [] Fearful [] Anxious [] Often cries [] Exhaustion [] Unable to work [] Unable to attend methodist [] Unable to walk/stand [] Unable to read [] Unable to drive [] Unable to eat/drink [] Unable to sleep [] Unable to be with family [] Patient intubated [] Other: Summary Time spent with patient
--- NOTE | 2022-09-12 11:26 | PM.DCS ---
Discharge Providers Date of Admission: 09/12/22 09:07 Date of Discharge: September 12, 2022 Attending Provider at Admission: Tomi Willson MD Attending Provider at Discharge: Tomi Willson MD Primary Care Provider: Joanne Miranda APRN Diagnoses at Discharge Discharge Diagnosis (1) Mesenteric arterial embolization: Status: Acute (2) Duodenal ulcer: Status: Acute (3) Anemia due to blood loss: Status: Acute (4) Complaint of melena: Status: Acute (5) Acute upper gastrointestinal bleeding: Status: Acute Reason for Visit Reason for Visit: GI BLEED Hospital Course Hospital Course 27-year female who presented to the hospital with hematemesis. EGD and colonoscopy showed gastritis, cratered duodenal ulcer, after endoscopy she started experiencing hematemesis again and became unstable sinus tachycardia, she was sent to [facility] for embolization of gastroduodenal artery, she was sent back to our facility, she required 2 more units in total she required 6 units of PRBC, she did not get any platelets. Hematemesis has resolved. Now she is experiencing little bit of melanotic stools. Hemoglobin stable around 10 she is hemodynamically stable she is very anxious and wanting to go home. I will give her Protonix and sucralfate 6 to 8-week regimen. She will follow-up with her PCP. Physical Exam Narrative: Young female EOMI< PERRLA OAx3 GCS 5 Groin area without any pathology S1, S2 sinus tachycardia Afebrile Hemodynamically stable Pale complexion Discharge Data Studies Completed and Pending Pending at discharge Category Date Time Status Basic Metabolic Panel AM LABS Lab 09/13/22 04:00 Ordered Complete Blood Count w/Auto AM LABS Lab 09/13/22 04:00 Ordered Hemoglobin and Hematocrit Routine Lab 09/12/22 16:00 Ordered Magnesium AM LABS Lab 09/13/22 04:00 Ordered Laboratory Results WBC 5.5 10^3/uL (4.0-10.0) 09/12/22 00:31 RBC 2.25 10^6/uL (4.1-5.3) L 09/12/22 00:31 Hgb 10.1 g/dL (11.5-15.3) L D 09/12/22 08:26 Hct 30.4 % (37.0-47.0) L D 09/12/22 08:26 MCV 86.7 fl (81-99) 09/12/22 00:31 MCH 28.0 pg (28.0-34.0) 09/12/22 00: MCHC 32.3 g/dL (30.0-36.0) 09/12/22 00: RDW 17.7 % (12.1-15.1) H 09/12/22 00: Plt Count 81 10^3/cmm (130-400) L 09/12/22 00: MPV 9.1 fL (7.4-10.4) 09/12/22 00: Neut % (Auto) 58.2 % 09/12/22 00: Lymph % (Auto) 31.6 % 09/12/22 00: [place] % (Auto) 8.8 % 09/12/22 00: Eos % (Auto) 0.5 % 09/12/22 00: Baso % (Auto) 0.4 % 09/12/22 00: Neut # (Auto) 3.22 10^3/uL (1.8-7.7) 09/12/22 00: Lymph # (Auto) 1.8 10^3/uL (0.8-4.8) 09/12/22 00: [place] # (Auto) 0.5 10^3/uL (0.2-0.9) 09/12/22 00:31 Eos # (Auto) 0.0 10^3/uL (0.0-0.8) 09/12/22 00: Baso # (Auto) 0.0 10^3/uL (0.0-0.1) 09/12/22 00: Nucleated RBC % (auto) 0.7 % 09/12/22 00: Nucleated RBCs # 0.0 /100WBC 09/12/22 00: Sodium 135 mmol/L (136-145) L 09/12/22 00: Potassium 3.1 mmol/L (3.5-5.1) L 09/12/22 00: Chloride 103 mmol/L (98-107) 09/12/22 00: Carbon Dioxide 25 mmol/L (22-29) 09/12/22 00: Anion Gap 10.1 (5-19) 09/12/22 00:31 BUN 11 mg/dL (6-20) 09/12/22 00:31 Creatinine 0.4 mg/dL (0.5-0.9) L 09/12/22 00:31 GFR Calculation 188.7 mL/min (90-130) H 09/12/22 00:31 Glucose 100 mg/dL (65-115) 09/12/22 00:31 Calculated Osmolality 279 mOsm/kg (285-295) L 09/12/22 00:31 Calcium 7.8 mg/dL (8.5-10.5) L 09/12/22 00:31 Phosphorus 3.0 mg/dL (2.5-4.5) 09/12/22 00:31 Magnesium 1.6 mg/dL (1.7-2.3) L 09/12/22 00:31 Blood Type AB Positive 09/12/22 01:18 Rho(D) Type Positive 09/12/22 01:18 Antibody Screen Negative 09/12/22 01:18 Crossmatch See Detail 09/12/22 01:18 Vitals Last Vital Signs Temp 97.9 F 09/12/22 05:30 Pulse 92 09/12/22 09:00 Resp 14 09/12/22 09:00 BP 104/68 09/12/22 09:00 Pulse Ox 92 09/12/22 07:45 O2 Del Method 09/12/22 07:45 Discharge Plan Discharge Patient Disposition: Home Condition: Stable Prescriptions: New Protonix 40 mg tablet,delayed release (DR/EC) 40 mg PO BID 56 Days Qty: 112 1RF sucralfate 1 gram tablet 1 g PO BID 84 Days Qty: 168 0RF Continued baclofen 10 mg tablet 10 mg PO BID PRN (Reason: Pain) gabapentin 100 mg capsule 100 mg PO BID hydroxyzine pamoate 25 mg capsule 25 mg PO BEDTIME PRN (Reason: Anxiety) buspirone 15 mg tablet 15 mg PO BID PRN (Reason: Anxiety) acetaminophen 500 mg Tablet 1,000 - 1,500 mg PO Q6H PRN (Reason: Pain) ondansetron 8 mg tablet,disintegrating 8 mg PO Q4H PRN (Reason: Nausea And Vomiting) Discontinued ibuprofen 800 mg tablet 800 mg PO Q6H PRN (Reason: Pain) Discharge Orders: Discharge Order (Routine); Ordered 09/12/22 Ordered By: Tomi Willson Discharge Diet: Clear Liquid Patient Instructions: Opioid Safety Discharge Attestations Time Spent in Discharge Care*: less than 30 min Quality Metrics Clinical Quality Measures [ No reported AMI, CVA or VTE this stay] Coding Level of Care Code Acute Chg FW DC note Diagnoses Mesenteric arterial embolization K55.059 Duodenal ulcer K26.9 Anemia due to blood loss D50.0 Complaint of melena K92.1 Acute upper gastrointestinal bleeding K92.2
--- NOTE | 2022-09-16 12:29 | PC.NURSE ---
Patient called and stated she was really weak, sweaty and light headed. She is afraid something is really wrong with her. Welcome Wagon Host/Hostess asked her if she contacted her Primary care. She states she has an appt tomorrow but doesn't think she can wait that long. Welcome Wagon Host/Hostess suggests she call her PCP and let them know what is going on to see if they can get her in and if not she needed to go to the ED. PT agreed with plan.
== END 2022-09-12 12:59 | disposition home or self-care (01) | DRG 811 ==
PROVIDERS: Admitting Provider Internal Medicine; PCP Registered Nurse; Visit Provider Internal Medicine
DX: D50.0 Iron deficiency anemia secondary to blood loss (chronic) (principal); K26.4 Chronic or unspecified duodenal ulcer with hemorrhage; K29.71 Gastritis, unspecified, with bleeding; T39.395A Adverse effect of other nonsteroidal anti-inflammatory drugs [NSAID], initial encounter; R00.0 Tachycardia, unspecified
CPT/HCPCS: 36415; 36430; 80048; 83735; 84100; 85014; 85018; 85025; 86850; 86900; 86920; C9113; G0378; G0379; J2270; J2405; J2765; J3411; P9016; P9040